=== PATIENT | male | born 1960 | race African-American/Black ===

== ENCOUNTER 2020-10-17 20:54 | Emergency (ER) | payer OTHER, SELFPAY ==
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
[2020-10-17 22:13] VITALS: BP 132/69; PULSE 77; RESP 16; TEMP 36.6; O2SAT 100; BMI 29.0
--- NOTE | 2020-10-18 00:22 | PC.NURSE ---
[facility] CLOSED PT CARE WILL BE RESUMED BY ED STILL WAITING TO BE SEEN BY PROVIDER. REPORT GIVEN TO FORTUNATO HILTON
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
[2020-10-18] MEDS: Acetaminophen 325 MG TABLET 650 MG PO (01:44)
== END 2020-10-18 02:29 | disposition home or self-care (01) ==
PROVIDERS: Emergency Provider Internal Medicine
DX: S00.83XA Contusion of other part of head, initial encounter (principal); Y04.2XXA Assault by strike against or bumped into by another person, initial encounter; I10 Essential (primary) hypertension; Y93.F9 Activity, other caregiving; Y92.9 Unspecified place or not applicable; Y99.0 Civilian activity done for income or pay
CPT/HCPCS: 70110; 99283